=== PATIENT | female | born 1970 | race Caucasian/White ===

== ENCOUNTER 2022-11-30 13:01 | Emergency (ER) | payer BC, SELFPAY ==
[2022-11-30 13:03] VITALS: BP 123/76; PULSE 86; RESP 16; TEMP 36.6; O2SAT 99; BMI 26.6
--- NOTE | 2022-11-30 13:12 | PC.NURSE ---
ELVIE MONTANEZ at for patient eval
--- NOTE | 2022-11-30 13:23 | HMH.EDGENADL ---
Discharge Plan Disposition Patient Disposition: Home, Self-Care Condition: Good Prescriptions Prescriptions: New potassium chloride 20 mEq tablet,ER particles/crystals 20 meq PO BID Qty: 14 0RF No Action celecoxib 200 mg capsule 200 mg PO DAILY Label Comments: TAKE 1 CAPSULE BY MOUTH ONCE DAILY WITH FOOD omeprazole 40 mg capsule,delayed release(DR/EC) 40 mg PO DAILY Label Comments: TAKE 1 CAPSULE BY MOUTH ONCE DAILY hydrocodone-acetaminophen 7.5-325 mg tablet 7.5 - 325 tab PO BID PRN (Reason: Pain) Label Comments: TAKE 1 TABLET BY MOUTH TWICE DAILY NEEDED FOR PAIN lisinopril 10 mg tablet 10 mg PO DAILY Label Comments: TAKE 1 TABLET BY MOUTH ONCE DAILY hydrochlorothiazide 25 mg tablet 25 mg PO DAILY Label Comments: TAKE 1 TABLET BY MOUTH ONCE DAILY lorazepam 1 mg tablet 1.5 mg PO HS Label Comments: TAKE 1 TABLET BY MOUTH EVERY DAY AT BEDTIME AND 1/2 (ONE-HALF) TABLET IN THE MORNING NEEDED FOR ANXIETY Mounjaro 5 mg/0.5 mL pen injector 5 mg SQ WEEKLY Referrals Follow up/Referrals: Josiane Bustos [Primary Care Provider] - See instructions Activity Restrictions/Add. Instructions Additional Instructions/Restrictions: Take the potassium supplement as directed and have your potassium level rechecked either later this week or early next week by your primary care provider. Rest and avoid exertion in the interim. Return for worsening weakness or other concerns. Clinical Impressions Clinical Impression: Acute hypokalemia Stand Alone Forms Stand Alone Forms: Work/School Release Discharge ED Provider: Jose Avila General Adult HPI General Chief complaint: Weakness Stated complaint: high heart rate,feels like passing out Time Seen by Provider: 11/30/22 13:09 History of Present Illness HPI narrative: Patient presents stating that she awoke this morning feeling unwell. She states she felt lightheaded as though she might pass out. She was at work and symptoms persisted and was checked and found to have an elevated heart rate. She denies chest pain she describes symptoms as moderate without exacerbating alleviating factors. Related Data Home Medications Medication Instructions Recorded Confirmed celecoxib 200 mg capsule 200 mg PO DAILY Pain 11/30/22 11/30/22 hydrochlorothiazide 25 mg tablet 25 mg PO DAILY Blood Pressure 11/30/22 11/30/22 hydrocodone 7.5 mg-acetaminophen 7.5 - 325 tab PO BID PRN Pain 11/30/22 11/30/22 325 mg tablet lisinopril 10 mg tablet 10 mg PO DAILY Blood Pressure 11/30/22 11/30/22 lorazepam 1 mg tablet 1.5 mg PO HS Insomnia 11/30/22 11/30/22 omeprazole 40 mg capsule,delayed 40 mg PO DAILY GERD 11/30/22 11/30/22 release tirzepatide 5 mg/0.5 mL 5 mg SQ WEEKLY Weight loss 11/30/22 11/30/22 subcutaneous pen injector (Clive) Previous Rx's Medication Instructions Recorded potassium chloride 20 mEq 20 meq PO BID #14 tabs 11/30/22 tablet,extended release(part/cryst) Allergies Allergy/AdvReac Type Severity Reaction Status Date / Time No Known Allergies Allergy Verified 11/30/22 13:39 [facility] Disclaimer: The information contained in this section may have been updated after the patient was seen, as this information can be updated by other users. Medical History (Updated 11/30/22 @ 14:46 by Jose Avila MD) Anxiety and depression Chronic pain GERD (gastroesophageal reflux disease) HTN (hypertension) Insomnia Recurrent dislocation, right shoulder Surgical History H/O gastric sleeve Social History Smoking Status: Former smoker alcohol intake: never current occupational status: employed Travel in the last 8 weeks: None ROS Obtained: Yes All systems reviewed & no additional complaints except as documented Physical Exam General General appe
--- NOTE | 2022-11-30 13:27 | ECG_ITS ---
APPROVED REPORT Exam: Resting ECG HR:89 bpm ECG Measurements Heart Rate 89 AXES AZ 172 P 66 QRSd 68 QRS 61 QT 362 T 99 QTc 408 Conclusion SINUS RHYTHM NONSPECIFIC T-WAVE ABNORMALITY BORDERLINE ECG UNCONFIRMED REPORT Electronically signed by : Davin Nichole MD 11/30/2022 18:35:28
--- NOTE | 2022-11-30 13:36 | PC.NURSE ---
patient given a pillow and warm blanket for comfort. Call light within reach, daughter at BS
[2022-11-30 13:48] LABS: Microscopic, Urine URINE MICROSCOPIC (MICROSCOPIC)
[2022-11-30 13:56] LABS: Appearance,Urine CLEAR (Clear); Bilirubin,Urine Negative (Negative); Blood, Urine TRACE-L (Negative); Color,Urine YELLOW (Yellow); Glucose,Urine (UA) Negative (Negative); Ketones,Urine TRACE (Negative); Leukocyte Esterase,Urine Negative (Negative); Nitrate,Urine Negative (Negative); Protein,Urine Negative (Negative); Specific Gravity, Urine <= 1.005 (1.005-1.030); Urobilinogen,Urine 0.2 EU/dl (0.2)
[2022-11-30 13:59] LABS: Alanine Aminotransferase 15 U/L (12-78); Albumin Level 4.4 g/dl (3.5-5.0); Albumin/Globulin Ratio 1.5 (1.1-1.8); Alkaline Phosphatase 79 U/L (38-126); Anion Gap 9.9 mEq/L (5-15); Aspartate Amino Transferase 24 U/L (14-36); Bilirubin,Total 0.6 mg/dl (0.2-1.3); Blood Urea Nitrogen 17 mg/dl (7-17); Calcium 9.1 mg/dl (8.4-10.2); Carbon Dioxide 30 mmol/L (22.0-30.0); Chloride 100 mmol/L (98-107); Creatinine Clearance Estimated 91 mL/min (50-200); Estimated Glomerular Filt Rate 75 ml/min (>60); GFR (African American) 91 ML/MIN (>60); Globulin 2.9 g/dL (1.3-3.2); Glucose 91 mg/dl (74-100); Sodium 137 mmol/L (136-145); Total Protein,Serum 7.3 g/dl (6.3-8.2)
[2022-11-30 14:00] VITALS: BP 122/71; PULSE 71; RESP 17; O2SAT 99
[2022-11-30 14:01] LABS: Potassium 2.9 mmoL/L (3.5-5.1)
--- NOTE | 2022-11-30 14:01 | PC.NURSE ---
MD aware of potassium of 2.9
[2022-11-30 14:03] LABS: D-Dimer 0.29 ug/mL (0.0-0.5)
[2022-11-30 14:13] LABS: Magnesium 2.1 mg/dl (1.6-2.3)
[2022-11-30 14:16] LABS: Bacteria,Urine Trace /lpf; RBC,Urine Occasional #/hpf (0-3)
[2022-11-30 14:16] LABS: Troponin I < 0.01 ng/ml (0.00-0.034)
[2022-11-30 14:25] LABS: Basophils # 0.1 K/mm3 (0-0.2); Eosinophils # 0.1 K/mm3 (0.0-0.4); Eosinophils % 1.4 % (0.1-12.0); Hematocrit 40.3 % (37.0-47.0); Hemoglobin 13.7 g/dL (12.2-16.2); Lymphocytes # 2.3 K/mm3 (0.7-4.5); Lymphocytes % 24.7 % (10-50); Mean Corpuscular HGB Conc 33.9 g/dL (31.8-35.4); Mean Corpuscular Hemoglobin 29.4 pg (27.0-31.2); Mean Corpuscular Volume 86.8 fl (81-99); Mean Platelet Volume 8.3 fl (7.4-10.4); Monocytes # 0.4 K/mm3 (0.1-1.0); Monocytes % 4.6 % (1.7-9.3); Neutrophils # 6.3 K/mm3 (1.8-7.8); Neutrophils % 68.4 % (37.0-80.0); Platelet Count 329 K/mm3 (142-424); Red Blood Count 4.65 M/mm3 (4.20-5.40); Red Cell Distribution Width 14.2 % (11.5-17.5); White Blood Count 9.2 K/mm3 (4.8-10.8)
[2022-11-30 14:58] VITALS: BP 127/74; PULSE 84; RESP 16; TEMP 36.6; O2SAT 98
== END 2022-11-30 15:00 | disposition home or self-care (01) ==
PROVIDERS: Emergency Provider Emergency Medicine; PCP Emergency Medicine
DX: E87.6 Hypokalemia (principal); F41.8 Other specified anxiety disorders; G89.29 Other chronic pain; K21.9 Gastro-esophageal reflux disease without esophagitis; I10 Essential (primary) hypertension; G47.00 Insomnia, unspecified; Z98.84 Bariatric surgery status; Z87.891 Personal history of nicotine dependence
CPT/HCPCS: 80053; 81001; 83735; 84484; 85025; 85378; 93005; 96360; 99285

== ENCOUNTER 2023-01-05 08:17 | Emergency (ER) | payer BC, SELFPAY ==
[2023-01-05 08:35] VITALS: BP 123/61; PULSE 78; RESP 21; TEMP 36.6; O2SAT 98; BMI 26.7
--- NOTE | 2023-01-05 09:03 | EXP.UTC ---
Discharge Plan Disposition Patient Disposition: Home, Self-Care Condition: Good Prescriptions Prescriptions: No Action celecoxib 200 mg capsule 200 mg PO DAILY Label Comments: TAKE 1 CAPSULE BY MOUTH ONCE DAILY WITH FOOD omeprazole 40 mg capsule,delayed release(DR/EC) 40 mg PO DAILY Label Comments: TAKE 1 CAPSULE BY MOUTH ONCE DAILY hydrocodone-acetaminophen 7.5-325 mg tablet 7.5 - 325 tab PO BID PRN (Reason: Pain) Label Comments: TAKE 1 TABLET BY MOUTH TWICE DAILY NEEDED FOR PAIN lisinopril 10 mg tablet 10 mg PO DAILY Label Comments: TAKE 1 TABLET BY MOUTH ONCE DAILY hydrochlorothiazide 25 mg tablet 25 mg PO DAILY Label Comments: TAKE 1 TABLET BY MOUTH ONCE DAILY lorazepam 1 mg tablet 1.5 mg PO HS Label Comments: TAKE 1 TABLET BY MOUTH EVERY DAY AT BEDTIME AND 1/2 (ONE-HALF) TABLET IN THE MORNING NEEDED FOR ANXIETY Mounjaro 5 mg/0.5 mL pen injector 5 mg SQ WEEKLY potassium chloride 20 mEq tablet,ER particles/crystals 20 meq PO BID Qty: 14 0RF Referrals Follow up/Referrals: Josiane Bustos [Primary Care Provider] - See instructions Activity Restrictions/Add. Instructions Additional Instructions/Restrictions: *Monitor Temp, Over the counter Motrin or Tylenol as directed/as needed Tylenol every 4 hours and Motrin every 6 hours (as long as your family doctor has told you that you can take it) for fever or pain. and straight to ER if unable to lower temp less than 101.0 after medication given *Warm salt water gargles may help to soothe the throat *Throat Lozenges? *Warm fluids like tea with honey may help to soothe the throat? *Sleep elevated *Humidifier/Vaporizer Your throat swab was sent for culture. Those results are typically sent to your primary care. Be sure to follow up in 2-3 days with your family doctor/primary care physician if no improvement so they can review those result and treat if necessary. If you don?t have a primary care doctor, I recommend you get one but in the mean time, you will have to return to a walk in clinic Follow up IMMEDIATELY for new or worsening symptoms or no Noticeable improvement over the next 48-72 hours. 911 for difficulty breathing or swallowing Clinical Impressions Clinical Impression: Sore throat (viral) Stand Alone Forms Stand Alone Forms: Work/School Release Instructions Patient Instructions: Sore Throat, DI for Nasal Congestion Discharge ED Provider: Deepthi Torres [facility] [place] HPI General Stated complaint: sore throat,headache,achey Mode of Arrival: Ambulatory Source of Information: Patient Limitations: No Limitations Time Seen by Provider: 01/05/23 09:04 Description of Symptoms (Recalled from Triage Doc. by RN): PATIENT C/O WEAKNESS, SORE THROT, AND BACK PAIN. SHE STATES SHE HAS BEEN FEELING BAD FOR WEEKS, BUT IT SEEMS TO HAVE GOTTEN WORSE OVER THIS PAST WEEKEND HEENT Symptoms (Recalled from RN notes): Yes Resp Symptoms (Recalled from RN notes): No Skin Symptoms (Recalled from RN notes): No MS Symptoms (Recalled from RN notes): No Functional Status (Recalled from RN notes): WNL History of Present Illness Provider Complaint: Patient states that she has been feeling bad for about a week or so States that a couple days ago she started having sore throat, body aches and chills States that she feels like she may have strep throat States that she is scheduled for Rotator cuff surgery soon Related Data Home Medications Medication Instructions Recorded Confirmed celecoxib 200 mg capsule 200 mg PO DAILY Pain 11/30/22 11/30/22 hydrochlorothiazide 25 mg tablet 25 mg PO DAILY Blood Pressure 11/30/22 11/30/22 hydrocodone 7.5 mg-acetaminophen 7.5 - 325 tab PO BID PRN Pain 11/30/22 11/30/22 325 mg tablet lisinopril 10 mg tablet 10 mg PO DAILY Blood Pressure 11/30/22 11/30/22 lorazepam 1 mg tablet 1.5 mg PO HS Insomnia 11/30/22 11/30/22 omeprazole 40 mg capsule
[2023-01-05 09:12] LABS: UTC Strep Screen (Rapid) Negative (Negative)
[2023-01-05 09:13] VITALS: BP 123/61; PULSE 78; RESP 21; TEMP 36.6; O2SAT 98
== END 2023-01-05 09:16 | disposition home or self-care (01) ==
PROVIDERS: Emergency Provider Nurse Practitioner; PCP Emergency Medicine
DX: R53.1 Weakness (principal); R51.9 Headache, unspecified; M54.9 Dorsalgia, unspecified; J02.8 Acute pharyngitis due to other specified organisms; B34.9 Viral infection, unspecified
CPT/HCPCS: 87880; 99212; 99213; G0463

== ENCOUNTER 2024-08-31 08:19 | Emergency (ER) | payer BC, SELFPAY ==
--- NOTE | 2024-08-31 08:18 | ECG_ITS ---
APPROVED REPORT Exam: Resting ECG HR:72 bpm ECG Measurements Heart Rate 72 AXES IL 165 P 75 QRSd 75 QRS 67 QT 393 T 59 QTc 417 Conclusion SINUS RHYTHM NONSPECIFIC ST & T-WAVE ABNORMALITY BORDERLINE ECG UNCONFIRMED REPORT Electronically signed by : Michael Stover, 08/31/2024 09:24:40
[2024-08-31 08:19] VITALS: BP 148/72; PULSE 83; RESP 20; TEMP 36.8; O2SAT 97; BMI 32.0
--- NOTE | 2024-08-31 08:26 | XR_ITS ---
PROCEDURE INFORMATION: Exam: XR Chest Exam date and time: 08/31/2024 8:27 AM Age: 54 years old Clinical indication: Cough and shortness of breath; Chest pressure and other: Pain in L shoulder/back; Patient HX: Chest pressure, radiating. Pain in L back. SOA TECHNIQUE: Imaging protocol: Radiologic exam of the chest. Views: 2 views. COMPARISON: No relevant prior studies available. FINDINGS: Lungs: Unremarkable. No consolidation. Pleural spaces: Unremarkable. No pleural effusion. No pneumothorax. Heart/Mediastinum: Unremarkable. No cardiomegaly. Bones/joints: Mild wedging midthoracic vertebral body. IMPRESSION: 1. Mild wedging midthoracic vertebral body. 2. No acute cardiopulmonary process.
[2024-08-31 08:37] VITALS: PULSE 83
[2024-08-31 08:38] LABS: Alanine Aminotransferase 18 U/L (12-78); Albumin Level 3.9 g/dl (3.5-5.0); Albumin/Globulin Ratio 1.3 (1.1-1.8); Alkaline Phosphatase 87 U/L (38-126); Anion Gap 13.1 mEq/L (5-15); Aspartate Amino Transferase 25 U/L (14-36); Basophils # 0.1 K/mm3 (0-0.2); Bilirubin,Total 0.5 mg/dl (0.2-1.3); Blood Urea Nitrogen 10 mg/dl (7-17); Calcium 8.8 mg/dl (8.4-10.2); Carbon Dioxide 25 mmol/L (22.0-30.0); Chloride 107 mmol/L (98-107); Creatinine Clearance Estimated 115 mL/min (50-200); Eosinophils # 0.2 K/mm3 (0.0-0.4); Eosinophils % 2.6 % (0.1-12.0); Estimated Glomerular Filt Rate 87 ml/min (>60); GFR (African American) 106 ML/MIN (>60); Globulin 2.9 g/dL (1.3-3.2); Glucose 104 mg/dl (74-100); Hematocrit 40.5 % (37.0-47.0); Hemoglobin 13.5 g/dL (12.2-16.2); Lymphocytes # 1.5 K/mm3 (0.7-4.5); Mean Corpuscular HGB Conc 33.4 g/dL (31.8-35.4); Mean Corpuscular Hemoglobin 30.5 pg (27.0-31.2); Mean Corpuscular Volume 91.5 fl (81-99); Mean Platelet Volume 8.2 fl (7.4-10.4); Monocytes # 0.5 K/mm3 (0.1-1.0); Monocytes % 7.7 % (1.7-9.3); Neutrophils # 4.4 K/mm3 (1.8-7.8); Neutrophils % 66.8 % (37.0-80.0); Platelet Count 264 K/mm3 (142-424); Potassium 3.1 mmoL/L (3.5-5.1); Red Blood Count 4.43 M/mm3 (4.20-5.40); Red Cell Distribution Width 14.2 % (11.5-17.5); Sodium 142 mmol/L (136-145); Total Protein,Serum 6.8 g/dl (6.3-8.2); White Blood Count 6.7 K/mm3 (4.8-10.8)
[2024-08-31 08:43] LABS: D-Dimer 0.57 ug/mL (0.0-0.5)
[2024-08-31 08:45] VITALS: BP 118/68; PULSE 72; RESP 22; O2SAT 97
--- NOTE | 2024-08-31 08:54 | HMH.EDGENADL ---
Discharge Plan Disposition Patient Disposition: Home, Self-Care Prescriptions Prescriptions: New potassium chloride [Klor-Con M20] 20 mEq tablet,ER particles/crystals 40 meq PO DAILY Qty: 10 0RF No Action celecoxib 200 mg capsule 200 mg PO DAILY Patient Comments: TAKE 1 CAPSULE BY MOUTH ONCE DAILY WITH FOOD omeprazole 40 mg capsule,delayed release(DR/EC) 40 mg PO DAILY Patient Comments: TAKE 1 CAPSULE BY MOUTH ONCE DAILY hydrocodone-acetaminophen 7.5-325 mg tablet 7.5 - 325 tab PO BID PRN (Reason: Pain) Patient Comments: TAKE 1 TABLET BY MOUTH TWICE DAILY NEEDED FOR PAIN lisinopril 10 mg tablet 10 mg PO DAILY Patient Comments: TAKE 1 TABLET BY MOUTH ONCE DAILY hydrochlorothiazide 25 mg tablet 25 mg PO DAILY Patient Comments: TAKE 1 TABLET BY MOUTH ONCE DAILY lorazepam 1 mg tablet 1.5 mg PO HS Patient Comments: TAKE 1 TABLET BY MOUTH EVERY DAY AT BEDTIME AND 1/2 (ONE-HALF) TABLET IN THE MORNING NEEDED FOR ANXIETY Mounjaro 5 mg/0.5 mL pen injector 5 mg SQ WEEKLY potassium chloride 20 mEq tablet,ER particles/crystals 20 meq PO BID Qty: 14 0RF Referrals Follow up/Referrals: Provider,Referral, MD [Primary Care Provider] - See instructions Activity Restrictions/Add. Instructions Additional Instructions/Restrictions: Take potassium as prescribed. Follow-up with primary care doctor. Please return to the emerged part with any new, concerning, worsening symptoms. Clinical Impressions Clinical Impression: Acute hypokalemia Chest pain Qualifiers: Chest pain type: unspecified Qualified Code(s): R07.9 - Chest pain, unspecified Print Language Print Language: [place] Discharge ED Provider: Michael Stover General Adult HPI General Chief complaint: Chest Pain Stated complaint: Chest Pain Time Seen by Provider: 08/31/24 08:26 Mode of Arrival: Ambulatory Source of Information: Patient Limitations: No Limitations Description of Symptoms (Recalled from ER Triage Doc. by RN): pt came in today for chest heaviness that has been going on since night before last, she states it starts in left ribs and comes around front. nothing makes it better or worse and just some mild nausea History of Present Illness HPI narrative: This is a 54-year-old female with a history of hypertension, prior gastric sleeve and GERD, and anxiety who presents with left-sided chest pain. States that has been present for the last 2 nights, nonexertional, nonpleuritic. States that it feels like chest pressure and it radiates to her central chest. Reports some associated shortness of breath. Also reports cough. Denies fever. Denies any other symptoms. Denies recent travel, hospitalizations, surgeries, or prior blood clots. Related Data Home Medications ?Medication ?Instructions ?Recorded ?Confirmed celecoxib 200 mg capsule 200 mg PO DAILY Pain 11/30/22 11/30/22 hydrochlorothiazide 25 mg tablet 25 mg PO DAILY Blood Pressure 11/30/22 11/30/22 hydrocodone 7.5 mg-acetaminophen 7.5 - 325 tab PO BID PRN Pain 11/30/22 11/30/22 325 mg tablet lisinopril 10 mg tablet 10 mg PO DAILY Blood Pressure 11/30/22 11/30/22 lorazepam 1 mg tablet 1.5 mg PO HS Insomnia 11/30/22 11/30/22 omeprazole 40 mg capsule,delayed 40 mg PO DAILY GERD 11/30/22 11/30/22 release tirzepatide 5 mg/0.5 mL 5 mg SQ WEEKLY Weight loss 11/30/22 11/30/22 subcutaneous pen injector (Mounjaro) Previous Rx's ?Medication ?Instructions ?Recorded potassium chloride 20 mEq 20 meq PO BID #14 tabs 11/30/22 tablet,extended release(part/cryst) potassium chloride 20 mEq 40 meq (2 x 20 mEq) PO DAILY #10 08/31/24 tablet,extended tabs release(part/cryst) (Klor-Con M) Allergies Allergy/AdvReac Type Severity Reaction Status Date / Time No Known Allergies Allergy Verified 11/30/22 13:39 [facility] Disclaimer: The information contained in this section may have been updated after the patient was seen, as this information can be updated by other users. Medical History (Updated 08/31/24 @ 09:13 by Michael Stover MD) Insomnia Recurrent dislocation, right shoulder Chronic pain GERD (gastroesophageal reflux disease) Anxiety and depression HTN (hypertension) Surgical History H/O gastric sleeve Social History (Updated 11/30/22 @ 20:19 by Jose Avila MD) Smoking Status: Never smoker alcohol intake: never current occupational status: employed Travel in the last 8 weeks: None ROS Obtained: Yes All systems reviewed & no additional complaints except as documented Physical Exam General General appearance: alert and in no apparent distress Eye Eye exam: Present normal appearance, PERRL and EOMI Respiratory Respiratory exam: Present normal lung sounds bilaterally; Absent respiratory distress Cardiovascular Cardiovascular exam: Present regular rate and normal rhythm Abdominal Exam Abdominal exam: Present soft and distention; Absent tenderness, guarding or rebound Extremities Exam Extremities exam: Present normal inspection Neurological Exam Neurological exam: Present alert and oriented X3 Skin Skin exam: Present warm and dry Medical Decision Making Medical Records Medical records reviewed: Yes I reviewed the patient's medical records. Screening: Per USPSTF and CDC recommendations, given the prevalence of disease in our region, it is our hospital?s policy to screen for HIV and viral Hepatitis for all patients aged 18 and over and those with ongoing risk factors. Idris Inquiry Pt receiving controlled substance: No Vital Signs: 08/31/24 08:19 08/31/24 08:37 08/31/24 08:45 Temperature 98.2 F Temperature Source Oral Pulse Rate 83 72 Pulse Rate [Left Radial] 83 Respiratory Rate 20 22 Blood Pressure 118/68 Blood Pressure [Right Arm] 148/72 H Blood Pressure Mean Blood Pressure Mean [Right Arm] 97 02 Sat by Pulse Oximetry 97 97 Oxygen Delivery Method Room Air Room Air 08/31/24 09:00 Temperature Temperature Source Pulse Rate 64 Pulse Rate [Left Radial] Respiratory Rate 18 Blood Pressure 118/68 Blood Pressure [Right Arm] Blood Pressure Mean 83 Blood Pressure Mean [Right Arm] 02 Sat by Pulse Oximetry 98 Oxygen Delivery Method Lab Data Lab Results 08/31/24 08:20: WBC 6.7, RBC 4.43, Hgb 13.5, Hct 40.5, MCV 91.5, MCH 30.5, MCHC 33.4, RDW 14.2, Plt Count 264, MPV 8.2, Neut % (Auto) 66.8, Lymph % (Auto) 22.0, [place] % (Auto) 7.7, Eos % (Auto) 2.6, Baso % (Auto) 1.0, Neut # (Auto) 4.4, Lymph # (Auto) 1.5, [place] # (Auto) 0.5, Eos # (Auto) 0.2, Baso # (Auto) 0.1, D-Dimer 0.57 H, Sodium 142, Potassium 3.1 L, Chloride 107, Carbon Dioxide 25, Anion Gap 13.1, BUN 10, Creatinine 0.70, Estimated Creat Clear 115, Estimated GFR 87, Est GFR ( Amer) 106, Glucose 104 H, Calcium 8.8, Total Bilirubin 0.5, AST 25, ALT 18, Alkaline Phosphatase 87, Troponin I < 0.01, Total Protein 6.8, Albumin 3.9, Globulin 2.9, Albumin/Globulin Ratio 1.3 08/31/24 08:20 08/31/24 08:20 Orders (Tests/Meds): ED MEDICATIONS Discontinued Medications Generic Name Dose Route Start Last Admin Trade Name Freq PRN Reason Stop Dose Admin Potassium Chloride 40 meq 08/31/24 09:01 08/31/24 09:12 Potassium Chloride 20meq Tab PO 08/31/24 09:02 40 meq ONCE ONE Administration ORDERS Category Date Time Status Chest XR 2 view (NOT portable) [XR chest 2V] Stat Exams 08/31/24 08:26 Taken CBC w/Auto Diff [Complete Blood Count Auto Diff] Stat Lab 08/31/24 08:20 Completed CMP [Comprehensive Metabolic Panel] Stat Lab 08/31/24 08:20 Completed D-Dimer Stat Lab 08/31/24 08:20 Completed Troponin I Stat Lab 08/31/24 08:20 Completed ECG Data Tracing #1: I reviewed this ECG and interpreted as documented below: Normal sinus rhythm at a rate of 72, normal axis, QTc 417, no STEMI Medical Decision Narrative: In summary, this 54-year-old female with a past medical history of hypertension, gastric sleeve and GERD, anxiety presents to the emergency department today with left-sided chest pressure for the last 2 days. On initial evaluation patient is nontachycardic, normotensive, satting appropriately on room air, no acute distress. Differential diagnosis includes but is not limited to ACS, PE, pneumonia. Based on these concerns, I ordered CBC, CMP, troponin, EKG, chest x-ray. Considered CT PE, however patient low risk Wells criteria and will screen with D-dimer first. ECG personally interpreted as noted above. Labs personally reviewed demonstrate normal white blood cell count, D-dimer of 0.57 (PE excluded by years criteria), undetectable troponin, mildly low potassium at 3.1 which was repleted orally. XR personally interpreted demonstrates no acute cardiopulmonary pathology. On reassessment patient in stable condition and in no acute distress, nontachycardic, satting 99% on room air. Appropriate for discharge with potassium supplementation. She is to follow-up with PCP. Discharged in stable condition. Critical Care Critical Care Time Critical Care Time: No
[2024-08-31 08:56] LABS: Troponin I < 0.01 ng/ml (0.00-0.034)
[2024-08-31 09:00] VITALS: BP 118/68; PULSE 64; RESP 18; O2SAT 98
--- NOTE | 2024-08-31 09:10 | PC.NURSE ---
DR CHAVARRIA AT BEDSIDE
[2024-08-31] MEDS: POTASSIUM CHLORIDE 20MEQ TAB 40 MEQ PO (09:12)
[2024-08-31 09:22] VITALS: BP 118/68; PULSE 62; RESP 18; TEMP 36.7; O2SAT 98
--- OUTSIDE RECORDS SUMMARY | 2024-09-01 15:14 | XMS_ITS | Clinical Summary ---
Author Organization [facility] Address [address] [place] [address] Care Team Providers Care Drawing Tender Name Role Phone Provider, No Known Primary Care Provider Unavail able Allergies No known active allergies Medications lisinopril (PRINIVIL,ZESTR IL) 5 MG tablet 0 01/18/2019 Act flaco LORazepam (ATIVAN) 1 MG tablet TAKE 1 2 (ONE HALF) TABLET BY MOUTH IN THE MORNING AND 1 TABLET AT BEDTIME NEEDED FOR ANXIETY 1 03/08/2019 Active thiamine (VITAMIN B-1) 100 MG tablet Take 100 mg by mouth Daily. Active hydroCHLOROthia zide (HYDRODIURIL) 25 MG tablet Take 25 mg by mouth Daily. Active meloxicam (MOBIC) 15 MG tablet Take 15 mg by mouth Daily. Active Family History Medical History Relation Name Comments Cancer Father Diabetes Father Obesity Father Cancer Maternal Grandfather Diabetes Maternal Grandfather Heart disease Maternal Grandfather Lung disease Maternal Grandfather Obesity Maternal Grandfather Stroke Maternal Grandfather Cancer Maternal Grandmother Diabetes Maternal Grandmother Heart disease Maternal Grandmother Lung disease Maternal Grandmother Obesity Maternal Grandmother Stroke Maternal Grandmother Diabetes Mother Heart disease Mother Stroke Mother Cancer Paternal Grandfather Diabetes Paternal Grandfather Heart disease Paternal Grandfather Lung disease Paternal Grandfather Obesity Paternal Grandfather Stroke Paternal Grandfather Cancer Paternal Grandmother Diabetes Paternal Grandmother Heart disease Paternal Grandmother Lung disease Paternal Grandmother Obesity Paternal Grandmother Stroke Paternal Grandmother Relation Name Status Comments Father Maternal Grandfather Maternal Grandmother Mother Paternal Grandfather Paternal Grandmother Social History Tobacco Use Types Packs/Day Years Used Date Smoking Tobacco: Never Abuse Screen Answer Date Recorded Unsafe at Home or Work/School Not on file 10 /07/2023 Feels Threatened by Someone? Not on file 07/2023 Does Anyone Keep You from Co ntacting Others or Doint Things Outside the Home? Not on file 07/25/2023 Physical Sign of Abuse Present Not on file 1 Housing Stability Answer Date Recorded Current Living Arrangements Not on file 07/16 Potentially Unsafe Housing Conditions Not on kolton e 07/25/2023 Family and Community Support Answer Kvng e Recorded Help with Day-to-Day Activities Not on file 07/25/2023 Lonely or Isolated Not on file 07/25/2023 Employment Answer Date Recorded Do you want help finding or keeping work or a maximilian b? Not on file 07/25/2023 Disabilities Answer Date Recorded Concentrating, Remembering, or Making Decisions Difficulty Not on file 07/25/2023 Doing Errands Independently Difficulty Not on fi le 07/25/2023 Education Answer Date Recorded Help with school or training? Not on file Preferred Language Not on file 07/25/2023 Comments No Sex and Gender Information Value Date Recorded Sex Assigned at Not on file Legal Sex Female 1:51 PM EDT Gender Identity Not on file Sexual Orientation Not on file Last Filed Vital Signs Vital Sign Reading Time Taken Comments Blood Pressure 144/82 08/19/2021 9:53 AM EDT Pulse 88 08/19/2021 9:53 AM EDT Temperature 36.5 ??C (97.7 ??F) 08/19/2021 9:53 AM ED T Respiratory Rate 16 08/19/2021 9:53 AM EDT Oxygen Saturation 97% 08/19/2021 9:53 AM EDT Inhaled Oxygen Concentration - - Weight 77.6 kg (171 lb) 08/19/2021 9:39 AM EDT Height 157.5 cm (5' 2 ) 08/19/2021 9:39 AM EDT Body Mass Index 31.28 08/19/2021 9:39 AM EDT Plan of Treatment Health Maintenance Due Date Last Done Comments Annual Gynecologic Pelvic an d Breast Exam 1970 COLOGUARD 1970 COLON CANCER SCREENING 5 YEA R SIGMOIDOSCOPY 1970 COLONOSCOPY 1970 [address] CANCER SCREENING 1970 CT COLONOGRAPHY 1970 FECAL OCCULT BLOOD TEST 1970 FIT Testing (1 year) 1970 MAMMOGRAM 1970 TDAP/TD VACCINES (1 - Tdap) 1989 ANNUAL PHYSICAL 04/03/2019 HEPATITIS C SCREENING 04/03/2019 PAP SMEAR 04/03/2019 ZOSTER VACCINE (1 of 2) 02/06/2020 INFLUENZA VACCINE 05/16/2024 COVID-19 Vaccine (2 - 2023-2 5 season) 2024 01/06/2021 Pneumococcal Vaccine 0-64 Aged Out No longer eligible based on patient's age to complete this topic Insurance Care Teams Drawing Tender Relationship Specialty Start Date End Date Provider, No Known [facility] [place] [address] PCP - General 04/03/19
--- OUTSIDE RECORDS SUMMARY | 2024-09-01 15:14 | XMS_ITS | Encounter Summary ---
Author Organization [facility] Address [address] [place] [address] Care Team Providers Care Office Clin Asst Name Role Phone Provider, No Known Primary Care Provider Unavail able Reason for Visit * Reason Comments Sore Throat x 3 days. Tylenol an d Ibuprofen at home. Fully vaccinated Covid, Headache Nasal Congestion Encounter Details Date Type Department Care Team (Late st Contact Info) Description 08/19/2021 9:42 AM EDT - 08/19/2021 10:15 AM EDT Hospital Encounter [facility] [address] [place] [id number] Jacques Argueta MD [address] [place] [address] Viral upper respiratory tract infection (Primary Dx) Discharge Disposition: Home or Self Care Social History Tobacco Use Types Packs/Day Years Used Date Smoking Tobacco: Never Comments No Sex and Gender Information Value Date Recorded Sex Assigned at Not on file Legal Sex Female 1:51 PM EDT Gender Identity Not on file Sexual Orientation Not on file documented as of this encounter Last Filed Vital Signs Vital Sign Reading [...] Mass Index 31.28 08/19/2021 9:39 AM EDT documented in this encounter Discharge Instructions * Discharge Instructions* Jacques Argueta MD - 08/19/2021 10:13 AM EDT Ibuprofen, sore throat lozenges, tea with honey, rest and fluids documented in this encounter Medications at Time of Discharge hydroCHLOROthiazi de (HYDRODIURIL) 25 MG tablet Take 25 mg by mouth Daily. lisinopril (PRINIVIL,ZESTRIL ) 5 MG tablet 0 01/18/2019 LORazepam (ATIVAN) 1 MG tablet TAKE 1 2 (ONE HALF) TABLET BY MOUTH IN THE MORNING AND 1 TABLET AT BEDTIME NEEDED FOR ANXIETY 1 03/08/2019 meloxicam (MOBIC) 15 MG tablet Take 15 mg by mouth Daily. thiamine (VITAMIN B-1) 100 MG tablet Take 100 mg by mouth Daily. documented as of this encounter ED Notes * Jacques Argueta MD - 08/19/2021 10:13 AM EDT Subjective 51-year-old female presents with sore throat, congestion and headache for the past 2 days. She has tried ibuprofen with only minimal improvement. Review of Systems Constitutional: Positive for activity change. HENT: Positive for congestion. Eyes: Negative. Respiratory: Negative. Cardiovascular: Negative. Gastrointestinal: Negative. Endocrine: Negative. Genitourinary: Negative. Musculoskeletal: Negative. Skin: Negative. Neurological: Positive for headaches. Objective Physical Exam Vitals and nursing note reviewed. Constitutional: General: She is not in acute distress. Appearance: Normal appearance. She is well-developed. HENT: Head: Normocephalic and atraumatic. Right Ear: Tympanic membrane, ear canal and external ear normal. Left Ear: Tympanic membrane, ear canal and external ear normal. Nose: Nose normal. Mouth/Throat: Mouth: Mucous membranes are moist. Pharynx: No posterior oropharyngeal erythema. Eyes: Extraocular Movements: Extraocular movements intact. Conjunctiva/sclera: Conjunctivae normal. Pulmonary: Effort: Pulmonary effort is normal. No respiratory distress. Musculoskeletal: General: Normal range of motion. Cervical back: Normal range of motion. Skin: Findings: No rash. Neurological: Mental Status: She is alert and oriented to person, place, and time. BP 144/82 (BP Location: Right arm, Patient Position: Sitting) Pulse 88 Temp 97.7 ??F (36.5 ??C)(Temporal) Resp 16 Ht 157.5 cm (62 ) Wt 77.6 kg (171 lb) SpO2 97% BMI 31.28 kg/m?? Past Medical History: Diagnosis Date ??? Anxiety ??? Arthritis ??? Depression ??? Gallbladder abscess ??? Hypertension ??? Migraines ??? Sinusitis Social History Socioeconomic History ??? Marital status: Tobacco Use ??? Smoking status: Never Smoker No Known Allergies No current facility-administered medications for this encounter. Current Outpatient Medications: ??? hydroCHLOROthiazide (HYDRODIURIL) 25 MG tablet, Take 25 mg by mouth Daily., Disp: , Rfl: ??? meloxicam (MOBIC) 15 MG tablet, Take 15 mg by mouth Daily., Disp: , Rfl: ??? lisinopril (PRINIVIL,ZESTRIL) 5 MG tablet, , Disp: , Rfl: 0 ??? LORazepam (ATIVAN) 1 MG tablet, TAKE 1 2 (ONE HALF) TABLET BY MOUTH IN THE MORNING AND 1 TABLETAT BEDTIME NEEDED FOR ANXIETY, Disp: , Rfl: 1 ??? thiamine (VITAMIN B-1) 100 MG tablet, Take 100 mg by mouth Daily., Disp: , Rfl: Procedures UC Course: MDM Number of Diagnoses or Management Options Viral upper respiratory tract infection: new and requires workup Amount and/or Complexity of Data Reviewed Clinical lab tests: reviewed Risk of Complications, Morbidity, and/or Mortality Presenting problems: low Diagnostic procedures: low Management options: low General comments: Strep negative. Patient is fully vaccinated for Covid and had Covid last year anddeclines Covid testing. Supportive treatment and counseling provided. Diagnoses that have been ruled out: None Diagnoses that are still under consideration: None Final diagnoses: Viral upper respiratory tract infection Medications administered for this visit: Medications - No data to display Medication List CONTINUE taking these medications hydroCHLOROthiazide 25 MG tablet Commonly known as: HYDRODIURIL lisinopril 5 MG tablet Commonly known as: PRINIVIL,ZESTRIL LORazepam 1 MG tablet Commonly known as: ATIVAN meloxicam 15 MG tablet Commonly known as: MOBIC thiamine 100 MG tablet Commonly known as: VITAMIN B-1 Labs Reviewed POCT RAPID STREP A - Abnormal Imaging Results: No orders to display Jacques Argueta MD 08/19/21 1014 documented in this encounter Plan of Treatment Not on file documented as of this encounter Procedures Procedure Name Priority Date/Time Associated Diagnosis Comments POCT RAPID STREP A STAT 08/19/2021 9: 58 AM EDT documented in this encounter Results * (ABNORMAL) POCT Rapid Strep A (08/19/2021 9:58 AM EDT) Rapid Strep A Screen Negative Negative, VALID, INVALID, Not Performed [facility] Internal Control Passed Passed [facility] Lot Number [id number] [facility] Expiration Date , [facility] Swab 08/19/2021 9:58 AM EDT Jacques Argueta MD POINT OF CARE TEST ORDERAB LES Final Result [facility]
[address] [place] [address], documented in this encounter Visit Diagnoses Diagnosis Viral upper respiratory tract infection- Primary Acute upper respiratory infections of unspecified site documented in this encounter Care Teams Office Clin Asst Relationship Specialty Start Date End Date Provider, No Known [facility] [place] [address] PCP - General 04/03/19 documented as of this encounter
--- OUTSIDE RECORDS SUMMARY | 2024-09-01 15:14 | XMS_ITS | Encounter Summary ---
Author Organization [facility] Address [address] [place] [address] Care Team Providers Care Magnesium Mill Operator Name Role Phone Provider, No Known Primary Care Provider Unavail able Reason for Visit * Reason Comments Earache Encounter Details Date Type Department Care Team (Late st Contact Info) Description 04/03/2019 1:00 PM EDT Office Visit [facility] [address] [place] [address] Other infective otitis externa of both ears, unspecified chronicity (Primary Dx) Social History Tobacco Use Types Packs/Day Years Used Date Smoking Tobacco: Never Comments No Sex and Gender Information Value Date Recorded Sex Assigned at Not on file Legal Sex Female 1:51 PM EDT Gender Identity Not on file Sexual Orientation Not on file documented as of this encounter Last Filed Vital Signs Vital Sign Reading Time Taken Comments Blood Pressure 136/78 04/03/2019 1:02 PM EDT Pulse 105 04/03/2019 1:02 PM EDT Temperature 38.2 ??C (100.8 ??F) 04/03/2019 1:02 PM E DT Respiratory Rate 12 04/03/2019 1:02 PM EDT Oxygen Saturation 98% 04/03/2019 1:02 PM EDT Inhaled Oxygen Concentration - - Weight 74.2 kg (163 lb 9.6 oz) 04/03/2019 1:02 P M EDT Height 157.5 cm (5' 2 ) 04/03/2019 1:02 PM EDT Body Mass Index 29.92 04/03/2019 1:02 PM EDT documented in this encounter Patient Instructions * Patient Instructions* Mariela Bray APRN - 04/03/2019 1:00 PM EDT Advised patient to schedule to see an ENT due to reoccurring otitis externa documented in this encounter Progress Notes * Mariela Bray APRN - 04/03/2019 1:00 PM EDT Subjective Ciera Clark is a 49 y.o. female. Severe ear pain for 2 days duration. Intense pain that is radiating to her jaw. More in right than left. This occurred about 1 month ago and was treated with drops but no longer has them. The following portions of the patient's history were reviewed and updated as appropriate: allergies, current medications, past family history, past medical history, past social history, past surgicalhistory and problem list. Review of Systems Constitutional: Positive for appetite change. Negative for activity change, chills and fever. HENT: Positive for ear pain. Negative for congestion, hearing loss, sinus pain and sore throat. Respiratory: Negative for cough. Objective Physical Exam Constitutional: She appears well-developed. HENT: Head: Normocephalic. Right Ear: Tympanic membrane normal. There is swelling. Left Ear: Tympanic membrane normal. There is swelling. Mouth/Throat: No oropharyngeal exudate. Eyes: Pupils are equal, round, and reactive to light. Neck: Normal range of motion. Cardiovascular: Normal rate and regular rhythm. Pulmonary/Chest: Effort normal and breath sounds normal. Assessment/Plan Ciera was seen today for earache. Diagnoses and all orders for this visit: Other infective otitis externa of both ears, unspecified chronicity Other orders - tzhsoszh-cbcatxzu-eckkcqmfsmnhna-thonzonium (CORTISPORIN-TC) 3.3-3-10-0.5 MG/ML otic suspension; Administer 4 drops into both ears 4 (Four) Times a Day for 7 days. documented in this encounter Plan of Treatment Not on file documented as of this encounter Visit Diagnoses Diagnosis Other infective otitis externa of both ears, unspecified chronicity- Primary documented in this encounter Care Teams Magnesium Mill Operator Relationship Specialty Start Date End Date Provider, [place] [address] PCP - General 6/19/19 documented as of this encounter
--- OUTSIDE RECORDS SUMMARY | 2024-09-01 15:14 | XMS_ITS | Encounter Summary ---
[facility] Organization [facility] Address [address] [place] [address] Care Team Providers Care Ethanol Maintenance Mechanic Name Role Phone Provider, No Known Primary Care Provider Unavail able Encounter Details Date Type Department Care Team (Late st Contact Info) Description 01/02/2023 5:00 AM EDT Outside Facility Service [facility] [address] [place] [address] Cris Kirkpatrick MD [address] [place] [address] Social History Tobacco Use Types Packs/Day Years Used Date Smoking Tobacco: Never Comments No Sex and Gender Information Value Date Recorded Sex Assigned at Not on file Legal Sex Female 1:51 PM EDT Gender Identity Not on file Sexual Orientation Not on file documented as of this encounter Plan of Treatment Not on file documented as of this encounter Visit Diagnoses Not on filedocumented in this encounter Care Teams Ethanol Maintenance Mechanic Relationship Specialty Start Date End Date Provider, [place] [address] PCP - General 04/03/19 documented as of this encounter
--- OUTSIDE RECORDS SUMMARY | 2024-09-01 15:14 | XMS_ITS | Encounter Summary ---
[facility] Organization [facility] Address [address] [place] [address] Care Team Providers Care [employer] Regional Sales Manager Name Role Phone Unavailable Primary Care Provider Unavailabl e Encounter Details Date Type Department Care Team (Late st Contact Info) Description 01/26/2015 11:53 AM EDT - 01/26/2015 11:59 PM EDT Hospital Encounter [facility] [address] [place] [address] Provider, No Known [facility] [place] [address] Social History Tobacco Use Types Packs/Day Years Used Date Smoking Tobacco: Never Assessed Comments Unknown Sex and Gender Information Value Date Recorded Sex Assigned at Not on file Legal Sex Female 1:51 PM EDT Gender Identity Not on file Sexual Orientation Not on file documented as of this encounter Plan of Treatment Not on file documented as of this encounter Visit Diagnoses Not on filedocumented in this encounter
== END 2024-08-31 09:29 | disposition home or self-care (01) ==
PROVIDERS: Emergency Provider Student in an Organized Health Care Education/Training Program
DX: R07.9 Chest pain, unspecified (principal); E87.6 Hypokalemia; R11.0 Nausea; R06.02 Shortness of breath; R05.9 Cough, unspecified
CPT/HCPCS: 71046; 80053; 84484; 85025; 85378; 93005; 99284